=== PATIENT | male | born 1935 | race Caucasian/White ===

== ENCOUNTER → 2024-05-09 16:12 | Outpatient (REF) | payer MEDICARE, SELFPAY | LOC: HWRAD 16:12 | PROVIDERS: ATTENDING PHYSICIAN Internal Medicine; OTHER PHYSICIAN Internal Medicine Cardiovascular Disease; REFERRING PHYSICIAN Internal Medicine Critical Care Medicine | DX: R06.09 Other forms of dyspnea (principal); J90 Pleural effusion, not elsewhere classified | CPT/HCPCS: 71250 ==

== ENCOUNTER 2024-05-16 22:04 | Emergency (ER) | payer MEDICARE, SELFPAY ==
[2024-05-16 22:07] VITALS: BP 147/75
--- NOTE | 2024-05-16 22:43 | ED.GENMED ---
History of Present Illness
General
Chief Complaint: Abdominal Symptoms
Source: patient and family (daughter)
Time Seen by Provider: 05/16/24 22:31
History of Present Illness
History of Present Illness:
Pleasant 89-year-old male presents to the emergency department with his daughter after experiencing pain after enjoying potato chips. He states that the chief felt as if it got stuck in his abdomen. Denies nausea or vomiting. States that he is
able to tolerate his secretions. States that the pain has significantly decreased in the interim from when he arrived to now. He states that he was eating the chips approximately 2 hours prior to arrival. Denies chest pain or shortness of breath.
Has had gastric surgeries in the past but states that this pain is more mild and in different location.
Review of Systems
Review of Systems
Allergies reviewed?: Yes
All Other Systems: ROS reviewed and negative except as documented in HPI and ROS
Constitutional: Reports no symptoms
EENT: Reports no symptoms
Respiratory: Denies cough or trouble breathing
Cardiac: Denies chest pain or palpitations
ABD/GI: Reports abdominal pain; Denies nausea, vomiting or bloody stools
: Reports no symptoms
Musculoskeletal: Reports no symptoms
Skin: Reports no symptoms
Neurological: Reports no symptoms
Endocrine: Reports no symptoms
Hematologic/Lymphatic: Reports no symptoms
Psychiatric: Reports no symptoms
Phy Exam
General Physical Exam
General Presentation: well appearing and no apparent distress
General Skin: warm and dry
General Habitus: normal
General Mental: alert
General Hydration: appears well hydrated
ENT Exam
ENT Exam: EOMI, pharynx normal, neck supple and normocephalic
Eye Exam
Eye Exam: PERRL, cornea clear and conjunctiva normal
Cardiovascular Exam
Cardiovascular Exam: regular rate/rhythm, no edema, no murmur and normal peripheral pulses
Pulmonary Exam
Pulmonary Exam: lungs clear, no respiratory distress, no rales, no crackles, no rhonchi, no stridor, no wheezing and no cough
Gastrointestinal Exam
Gastrointestinal Exam: normal bowel sounds, non tender, soft, no organomegaly, no pulsatile mass and non distended
Neurological Exam
Neurological Exam: alert, oriented x3, no motor deficits and speech normal
Musculoskeletal Exam
Musculoskeletal Exam: full ROM and no edema
Skin Exam
Skin Exam: normal color, warm/dry, no rash and no petechia
Psychiatric Exam
Psychiatric Exam: normal mood/affect
Course
Orders/Labs/Results
Orders:
Orders
05/16/24 22:42
Encourage PO Hydration-Treatme ONCE
Pantoprazole [Protonix] 20 mg PO NOW STA
Vital Signs
Initial and Last Documented VS:
Initial Vital Signs
Temp Pulse Resp BP Pulse Ox
97.6 F 71 20 147/75 97
05/16/24 22:07 05/16/24 22:07 05/16/24 22:07 05/16/24 22:07 05/16/24 22:07
Last Documented Vital Signs
Temp Pulse Resp BP Pulse Ox
97.6 F 71 20 147/75 97
05/16/24 22:07 05/16/24 22:07 05/16/24 22:07 05/16/24 22:07 05/16/24 22:07
*Critical Care Note
Total Time (30-74mins, 75-104mins- exclusive of procedures): Not Applicable
Update Note
Update Note:
05/16/2024 2250 PM: Patient is tolerating his own secretions easily. He is in absolutely no distress. Patient able to drink liquid without issue. Patient to be discharged. Daughters are in agreement with this plan.
ED Attending Note
-
Portions of this chart may have been created with voice recognition software.� Occasional wrong word or��sound alike� substitutions may have occurred due to the inherent limitations of voice recognition software.
Discharge Plan
Departure
Patient Disposition: Home (Routine Discharge)
Date of Disposition: 05/16/24
Time of Disposition: 23:18
Patient with high blood pressure during this ER visit?: Yes
Discharge Problem:
Esophagitis, Abdominal pain
Instructions: [place] Diet, Abdominal Pain, BLOOD PRESSURE
Referrals:
[facility] [Outside]
Activity Restrictions/Additional Instructions:
Please continue to take all of your home medications.
It was a pleasure meeting you and taking part in your care. We hope for your continued healing and wellness.
Please read discharge instructions in their entirety. However, they are for general education and may not describe your exact diagnosis at discharge. Information on your ER visit and medical conditions were discussed with you along with appropriate
follow up information...
If indicated, please take your medications as instructed and indicated on discharge paperwork.
Please schedule a follow up appointment as directed. Call to schedule an appointment
Please return to the emergency department with ANY change in, persisting, or worsening of symptoms. If any of your symptoms do not improve, or persist, or become more severe within 6-12 hours, please return to the emergency department for further
care.
Please return to the emergency department if you develop a headache, neck pain/stiffness, fever greater than 100.4F, chest pain, shortness of breath, persistent nausea, vomiting, slurred speech, difficulty walking, numbness/tingling, weakness, signs
of infection or any other symptoms that are worrisome to you.
If you have any questions or concerns please do not hesitate to call the Hospital at or E-mail me directly at [email or web address]
Interventions
Interventions:
*Risk Screen - Suicide Last Done: 05/16/24 22:05
*Neglect/Abuse Screening Last Done: 05/16/24 22:05
IF-Gnbkxx-Rrhxtvzebc Assessment Last Done: 05/16/24 23:15
Discharge Date and Time
Print Language: HUNGARIAN
[2024-05-16] MEDS: PROTONIX 20 MG PO (22:50)
== END 2024-05-16 23:35 | disposition home or self-care (01) ==
LOC: EMR 22:04
PROVIDERS: EMERGENCY PHYSICIAN Student in an Organized Health Care Education/Training Program; FAMILY PHYSICIAN Internal Medicine
DX: K20.90 Esophagitis, unspecified without bleeding (principal); R10.9 Unspecified abdominal pain
CPT/HCPCS: 99283